=== PATIENT | male | born 1960 | race Hispanic/Latino ===

== ENCOUNTER 2023-08-31 06:17 | Day surgery (SDC) | payer BC ==
[2023-08-29 14:42] LABS: Absolute Lymphocytes (CBC) 1.7 K/uL (0.7-4.9); Hematocrit 37.9 % (39.6-49.0); Lymphocytes % 23.4 % (15.3-44.8); MCV 88.9 fL (80-100); MPV 7.5 fL (7.6-11.3); Platelets 158 thou/uL (152-406); RBC Red Blood Cell Count 4.27 M/uL (4.33-5.43)
--- NOTE | 2023-08-29 15:07 | RAD REPORT ---
EXAM DESCRIPTION: Tank Mehta And Kenyatta (2 Views)08/29/2023 2:41 pm CLINICAL HISTORY: Preop for umbilical hernia repair COMPARISON: 2014 FINDINGS: Bilateral interstitial lung opacities appear mostly if not completely chronic. Heart is mildly to moderately enlarged. Pacemaker leads in place
[2023-08-29 15:16] LABS: Potassium 4.1 mEq/L (3.5-5.1)
[2023-08-29 16:04] LABS: Protime INR 1.13
--- NOTE | 2023-08-30 13:42 | EKG ---
Test Date: 2023-08-29 Test Time: 15:23:10 Manager Title: MITZI MEASUREMENT RESULTS: Intervals: Rate: 65 SC: QRSD: 152 QT: 472 QTc: 490 [place]: P: SC: QRS: 246 T: 89 INTERPRETIVE STATEMENTS: Demand pacemaker, interpretation is based on intrinsic rhythm Wide QRS rhythm with occasional premature ventricular complexes Right bundle branch block Cannot rule out Anterior infarct, age undetermined Abnormal ECG Compared to ECG 12/06/2011 22:19:06 Uncertain supraventricular rhythm now present Ventricular premature complex(es) now present Right bundle-branch block now present Myocardial infarct finding now present Electronically Signed On 08-30-23 13:39:37 [employer] by Shan Foy
[2023-08-31] MEDS ORDERED: NA CHLORIDE 0.9% 1,000 ML ONE (06:38)
[2023-08-31] MEDS ORDERED: FENTANYL CITR 100 MCG/2 ML ONE (07:18)
[2023-08-31] MEDS ORDERED: ONDANSETRON 4 MG/2 ML VIAL ONE (07:18)
[2023-08-31] MEDS ORDERED: propofoL 200 MG/20 ML VIAL IV ONE (07:18)
[2023-08-31] MEDS ORDERED: ROCURONIUM 50 MG/5 ML VIAL IV ONE (07:18)
[2023-08-31] MEDS ORDERED: LIDOCAINE 2% MPF 5 ML VIAL ONE (07:18)
[2023-08-31] MEDS: CEFAZOLIN SODIUM 1 GM/VIAL ONE ×2 (07:21→08:00)
[2023-08-31] MEDS ORDERED: HYDROMORPHONE HCL 1 MG/ML INJ ONE (07:25)
[2023-08-31] MEDS ORDERED: CEFAZOLIN SODIUM 1 GM/VIAL ONE (07:59)
[2023-08-31] MEDS ORDERED: dexAMETHasone 4 MG/ML VIAL ONE (07:59)
[2023-08-31] MEDS ORDERED: GLYCOPYRROLATE 0.2 MG/ML SYR ONE (08:14)
[2023-08-31] MEDS ORDERED: NEOSTIGMINE 1 MG/ML -10 ML VIAL ONE ×2 (08:23)
--- NOTE | 2023-08-31 08:40 | P.BOP ---
Preoperative diagnosis: umbilical hernia tender reducible 3cm Postoperative diagnosis: same Primary procedure: Laparoscopic repair of umbilical hernia tender reducible 3cm Estimated blood loss: <10cc Specimen: sac Findings: incarcerated omentum today Anesthesia: General Complications: None Implants: ventralex medium Transferred to: Recovery Room Condition: Good
[2023-08-31] MEDS ORDERED: SUGAMMADEX SODIUM 200 MG/2 ML VIAL IV ONE (08:51)
--- NOTE | 2023-08-31 09:41 | DS ---
Diagnosis: Tender umbilical hernia. Procedure Performed: Laparoscopic repair of tender umbilical hernia with mesh. Disposition: Home. Activity: As tolerated. No heavy lifting. Plan: Follow up in my office in 1 week. Call for appointment at [phone]. Keep the area intact until next visit. Medications: See orders. BRUNA/STACIE Voice ID: [id number] Report ID: [id number]
--- NOTE | 2023-08-31 09:53 | OP ---
Date of Procedure: 08/31/2023 Surgeon: Sean Kuo MD Preoperative Diagnosis: Tender umbilical hernia. Postoperative Diagnosis: Tender umbilical hernia. Procedure Performed: Laparoscopic repair of tender reducible umbilical hernia with mesh 3 cm. Complications: None. Estimated Blood Loss: Less than 10 mL. Implants: Medium Ventralex mesh. Indications: This is a case of a 63-year-old patient comes to us with a tender umbilical hernia. Be nefits, alternatives, and risks of laparoscopic versus open repair with possible mesh fully explained , which included, but not limited to infection, bleeding, damage to adjacent structures, anesthesia c omplication, MA, and even . He also understands this may not relieve any symptoms. He might ne ed more than one surgical intervention. He understands we may be using mesh in that region. Pros an d cons of mesh were discussed with the patient. He signed a consent. Procedure In Detail: The patient was brought to the operating room and placed in supine position. A nesthesia was achieved without complication. Abdominal area was prepped and draped in usual sterile fashion. Local anesthesia was applied followed by a small incision in the supraumbilical region. In cision was carried down until we found the hernia sac. Hernia sac was removed. We have an incarcera marian omentum, but did not want to reduce today, but we were able to eventually ligate it. We checked the omentum inside and make sure that it retracted rest of omentum without any bleeding. The hernia sac and content was sent with the specimen. The fascial edges were debrided that leave the defect, d oes not look heal properly, so we decided to use the mesh in that region. At that moment, we have a 5 mm trocar placed in the left and right side of the abdomen under direct visualization. Through the Raciel trocar that we replaced to the umbilical region after pneumoperitoneum was obtaine d. Once we have those inside in that area, we were able to clean the periumbilical region. Then, af ter that, we introduced Ventralex mesh through the Raciel trocar site, removed the Raciel trocar, all the fascia together while we at least secure the Ventralex initially. After that, the mesh straps w ere removed and then the periumbilical hernia region was approximated with #1 Vicryl multiple times. We already have an AirSeal on this hernia. We continued then circumferentially intraperitoneally un francisca direct visualization, secured circumferentially the mesh to the anterior abdominal wall with a So rbaFix fixation device. The mesh looked like a flat against the peritoneum with no intestines or any structures in between. At that moment, we checked also for hemostasis, the omentum also with no ble eding. At that moment, we proceeded to deflate the pneumoperitoneum under direct visualization and r emoved the trocars. After that, we closed the subcutaneous tissue with 3-0 chromic and skin in a sub cuticular fashion with 3-0 chromic and Steri-Strips on top. Sponge count and instrument counts were correct. The patient tolerated the procedure well. The patient was sent to recovery in stable condi tion. BRUNA/STACIE Voice ID: [id number] Report ID: [id number]
[2023-08-31 10:02] VITALS: BP 124/63; TEMP 97; O2SAT 93
== END 2023-08-31 10:35 | disposition home or self-care (01) ==
LOC: OR 06:17
PROVIDERS: ATTEND Surgery
PROC: 0WUF4JZ Supplement Abdominal Wall with Synthetic Substitute, Percutaneous Endoscopic Approach (ICD-10-PCS; principal; 2023-08-31 07:30)
DX: K42.9 Umbilical hernia without obstruction or gangrene (principal); I10 Essential (primary) hypertension; I48.11 Longstanding persistent atrial fibrillation; Z79.01 Long term (current) use of anticoagulants; Z79.82 Long term (current) use of aspirin
CPT/HCPCS: 93005; 85025; 80048; 36415; 85610; 82947; 88302; 85730; 71046; 49593; J2704; J1100; J2710 ×2; J2001; J3010; J1170; J2405; J7030; J0690 ×2